=== PATIENT | female | born 2000 | race Caucasian/White ===

== ENCOUNTER 2020-08-13 08:33 | Outpatient (CLI) | payer OTHER, SELFPAY ==
--- NOTE | 2020-08-19 13:15 | WPDPFTINT ---
PFT Interpretation PFT Interpretation: Full pulmonary function testing 08/13/2020 1. Flows appear normal. Following inhaled bronchodilator, there is little objective change. 2. Volumes appear satisfactory. 3. Diffusing capacity appears normal. In summary, this data appears to measure within normal limits. Paulo Chen MD MSc FACP [facility]
== END 2020-08-13 08:34 | disposition home or self-care (01) ==
PROVIDERS: PCP Family Medicine; Visit Provider Nurse Practitioner Family
DX: R06.00 Dyspnea, unspecified (principal)
CPT/HCPCS: 94060; 94726; 94729

== ENCOUNTER 2022-09-07 13:13 | Outpatient (CLI) | payer OTHER, BC, SELFPAY ==
--- NOTE | ~2022-09-07 | US_ITS ---
Thyroid ultrasound. Clinical History: Autoimmune thyroiditis Findings: Real-time sonography of the thyroid gland was performed. The right lobe measures 5.8 x 1.8 x 1.5 cm. The left lobe measures 5.1 x 1.8 x 1.8 cm. The isthmus is 7 mm in AP diameter. Thyroid parenchyma is diffusely heterogeneous, without definite, discrete nodule. Impression: Heterogeneous parenchyma without discrete nodule. Consider correlation with thyroid function tests an d/or nuclear medicine thyroid uptake scan, as indicated. Reviewed, dictated and finalized at location M. H TECHNICIAN Impression: Heterogeneous parenchyma without discrete nodule. Consider correlation with thy roid function tests and/or nuclear medicine thyroid uptake scan, as indicated.
== END 2022-09-07 13:14 ==
PROVIDERS: PCP Family Medicine; Visit Provider Nurse Practitioner Family
DX: E06.3 Autoimmune thyroiditis (principal)
CPT/HCPCS: 76536

== ENCOUNTER 2022-10-08 12:56 | Outpatient (CLI) | payer OTHER, BC, SELFPAY ==
--- NOTE | ~2022-10-08 | NM_ITS ---
EXAMINATION: NM thyroid scan w uptake DATE: 10/09/2022 14:45 INDICATION: Autoimmune thyroiditis. COMPARISON: Thyroid ultrasound 09/07/2022 TECHNIQUE: 0.363 mCi I-123 was administered orally. Scintigraphic images of the thyroid gland were o btained at 24 hours. Thyroid uptake was calculated by the technologist. FINDINGS: The thyroid uptake is 33% (normal 10-30%), with the right lobe measuring 18% uptake and the left 15%. There is no focal area of decreased or increased activity to suggest hypofunctioning or hyperfunctio cristhian nodule. IMPRESSION: 1. Borderline increased 24-hour iodine uptake, likely not clinically significant given the normal th yroid function tests. Reviewed, dictated and finalized at location A. ETICS TEACHER IMPRESSION: 1. Borderline increased 24-hour iodine uptake, likely not clinically significa nt given the normal thyroid function tests.
== END 2022-10-08 12:57 | disposition home or self-care (01) ==
PROVIDERS: PCP Family Medicine; Visit Provider Nurse Practitioner Family
DX: E06.3 Autoimmune thyroiditis (principal)
CPT/HCPCS: 78014; A9516

== ENCOUNTER 2024-04-12 15:43 | Outpatient (CLI) | payer OTHER, SELFPAY ==
--- NOTE | ~2024-04-12 | US_ITS ---
EXAMINATION: US OB <= 14 weeks fetus DATE: 04/12/2024 16:04 INDICATION: Uncertain dating of TECHNIQUE: Real-time pelvic ultrasound utilizing transabdominal probe was performed. The brie mohan radiologist was not present for the study. COMPARISON: None. FINDINGS: The uterus measures 10.0 x 5.1 x 5.7 cm. There is an intrauterine gestational sac. A yolk sac and fe nadira pole are identified. The crown rump length measures 1.2 cm, which correlates with an estimated ge stational age of 7 weeks and 3 days. heart motion is identified measuring 144 beats per minute (bpm) by M-mode Doppler. The right ovary measures 2.5 x 1.7 x 2.5 cm. The left ovary measures 3.7 x 1.5 x 3.0 cm. Vascular ayaka w identified in both ovaries on color Doppler. There is no free fluid in the pelvis. IMPRESSION: 1. Single living fetus with heart rate of 144 bpm. 2. Gestational age by ultrasound of 7 weeks 3 day(s) +/- 5 day(s) with ultrasound estimated date of delivery (MARIUM) of 11/26/2024. Reviewed, dictated and finalized at location A. IMPRESSION: 1. Single living fetus with heart rate of 144 bpm. 2. Gestational age by ultrasound of 7 weeks 3 day(s) +/- 5 day(s) with ultraso und estimated date of delivery (MARIUM) of 11/26/2024.
== END 2024-04-12 15:44 ==
PROVIDERS: PCP Obstetrics & Gynecology Gynecology; Visit Provider Obstetrics & Gynecology Gynecology
DX: Z36.87 Encounter for antenatal screening for uncertain dates (principal); Z3A.01 Less than 8 weeks gestation of pregnancy
CPT/HCPCS: 76801

== ENCOUNTER 2024-04-20 10:21 | Outpatient (CLI) | payer OTHER, SELFPAY ==
--- NOTE | ~2024-04-20 | US_ITS ---
Pelvic ultrasound. Clinical History: First trimester , vaginal spotting Technique: Realtime transabdominal and transvaginal scanning of the pelvis was performed. Color flow Doppler and Doppler spectral analysis were performed. Findings: The uterus is anteverted, and contains an intrauterine gestation. [place]-rump length of 2.1 cm corresponds to an estimated gestational age of 8 weeks 5 days. heart rate is 158 bpm.. Neither ovary seen. No adnexal mass seen. There is no evidence of free fluid in the cul de sac. Impression: Live intrauterine gestation, with estimated gestational age of 8 weeks 5 days. heart rate is 15 8 bpm. Reviewed, dictated and finalized at location . Impression: Live intrauterine gestation, with estimated gestational age of 8 weeks 5 days. heart rate is 158 bpm.
== END 2024-04-20 10:22 ==
PROVIDERS: PCP Obstetrics & Gynecology Gynecology; Visit Provider Obstetrics & Gynecology Gynecology
DX: O26.851 Spotting complicating pregnancy, first trimester (principal)
CPT/HCPCS: 76801

== ENCOUNTER 2024-07-03 13:15 | Outpatient (CLI) | payer OTHER, SELFPAY ==
--- NOTE | ~2024-07-03 | US_ITS ---
EXAMINATION: US OB /maternal detail DATE: 07/03/2024 13:56 INDICATION: anatomic survey. TECHNIQUE: Real-time ultrasound of the pelvis was performed. COMPARISON: Ultrasound 04/20/2024, 04/12/2024 FINDINGS: There is a single living fetus in vertex presentation. The placenta is anterior, 7.0 cm from the cer vix. heart rate is 157 beats per minute (bpm). The amniotic fluid volume is subjectively normal . The cervical length is 3.2 cm on transabdominal images, which is normal. The following biometric data were obtained: Biparietal diameter (BPD): 4.6 cm; head circumference (HC): 17.2 cm; abdominal circumference (AC): 14 .0 cm; femur length (FL): 2.9 cm. These measurements are concordant. Estimated weight is 278 g +/- 42 g, which correlates with the 19th percentile when 11/22/24 is us ed as estimated date of delivery. As single measurements, these parameters are each equal to the following estimated gestational ages: BPD: 19 weeks 5 days. HC: 19 weeks 5 days. AC: 19 weeks 3 days. FL: 18 weeks 5 days. estimated gestational age based solely on measurements from this exam is 19 weeks 3 days +/- 1 weeks 3 days. The cerebral ventricles, cerebellum, cisterna magna, nuchal fold, lip, and spine are normal. The hear t is normal. The diaphragm, stomach, kidneys, and bladder are normal. There are two umbilical arterie s to yield a 3-vessel cord. The cord insertion is normal. IMPRESSION: 1. Single living fetus in vertex presentation. 2. Estimated weight is 278 g +/- 42 g, which correlates with the 19th percentile when 11/22/24 i s used as estimated date of delivery. Note that estimated date of delivery based on the ultrasound fr om 04/12/2024 would be 11/26/2024. 3. Normal anatomic survey. Reviewed, dictated and finalized at location A. UCTION CONTROL COORDINATING CLERK IMPRESSION: 1. Single living fetus in vertex presentation. 2. Estimated weight is 278 g +/- 42 g, which correlates with the pe rcentile when 11/22/24 is used as estimated date of delivery. Note that estimated date of delivery based on the ultrasound from 04/12/2024 would be 11/26/2024. 3. Normal anatomic survey.
== END 2024-07-03 13:16 | disposition home or self-care (01) ==
LOC: MICIMG 13:17
PROVIDERS: PCP Obstetrics & Gynecology Gynecology; Visit Provider Obstetrics & Gynecology Gynecology
DX: Z36.9 Encounter for antenatal screening, unspecified (principal)
CPT/HCPCS: 76805

== ENCOUNTER 2024-09-19 21:33 | Outpatient (CLI) | payer OTHER, SELFPAY ==
[2024-09-19] VITALS (12 sets, daily range): BP systolic 108–114; BP diastolic 60–70; PULSE 73–83; O2SAT 100; BMI 31.0
--- OUTSIDE RECORDS SUMMARY | 2024-09-19 21:38 | XMS_ITS | Clinical Summary ---
Author Organization [address] Address [address] [place] [phone] Care Team Providers Care Radiographer Mammographer Name Role Phone Carson Fernandes MD Primary Care Provider Allergies No known active allergies Medications norgestimate-eth inyl estradioL (ORTHO-CYCLEN) 0.25-35 mg-mcg per tablet Take 1 tablet by mouth daily Active Active Problems No known active problems Social History Tobacco Use Types Packs/Day Years Used Date Smoking Tobacco: Never Assessed Comments Unknown Sex and Gender Information Value Date Recorded Sex Assigned at Not on file Legal Sex Female 3:57 PM WEB SOLUTIONS ARCHITECT Gender Identity Not on file Sexual Orientation Not on file Obstetrics History Last Filed Vital Signs Vital Sign Reading Time Taken Comments Blood Pressure 114/68 07/01/2023 2:59 PM WEB SOLUTIONS ARCHITECT Pulse 60 07/01/2023 2:59 PM WEB SOLUTIONS ARCHITECT Temperature 37.1 ??C (98.7 ??F) 07/01/2023 2:59 PM CS T Respiratory Rate 16 07/01/2023 2:59 PM WEB SOLUTIONS ARCHITECT Oxygen Saturation 99% 07/01/2023 2:59 PM WEB SOLUTIONS ARCHITECT Inhaled Oxygen Concentration - - Weight 59 kg (130 lb) 07/01/2023 2:59 PM WEB SOLUTIONS ARCHITECT Height 157.5 cm (5' 2 ) 07/01/2023 2:59 PM WEB SOLUTIONS ARCHITECT Body Mass Index 23.78 07/01/2023 2:59 PM WEB SOLUTIONS ARCHITECT Plan of Treatment Health Maintenance Due Date Last Done Comments Cervical Cancer Screening 1998 Depression Screening 1998 Hepatitis C Screening 1998 DTaP/Tdap/Td Vaccine (1 - Tdap) 2009 Varicella Vaccines (1 of 2 - 13+ 2-dose series) 2011 HPV Vaccines (1 - 3-dose series) 2013 Hepatitis B Screening 2016 Regular Well Visit/Exam 18-64 2016 Influenza Vaccine (#1) 2024 Pneumococcal vaccine <65 Aged Out No longer eligible based on patient's age to [place] [address] [place] [address] [facility] CHOICE PLUS [facility] HMO/PPO Address: [facility] [id number] [place] [address] Care Teams Radiographer Mammographer Relationship Specialty Start Date End Date Carson Fernandes MD PCP - General Family Medicine 07/01/23
--- OUTSIDE RECORDS SUMMARY | 2024-09-19 21:38 | XMS_ITS | Referral Summary ---
Author Organization [address] Address [address] [place] [phone] Care Team Providers Care Nurse Informatics Educator Name Role Phone Carson Fernandes MD Primary [...] on file Legal Sex Female 3:57 PM LOOM STOP CHECKER Gender Identity Not on file Sexual Orientation Not on file Last Filed Vital Signs Vital Sign Reading Time Taken Comments Blood Pressure 114/68 07/01/2023 2:59 PM LOOM STOP CHECKER Pulse 60 07/01/2023 2:59 PM LOOM STOP CHECKER Temperature 37.1 ??C (98.7 ??F) 07/01/2023 2:59 PM CS T Respiratory Rate 16 07/01/2023 2:59 PM LOOM STOP CHECKER Oxygen Saturation 99% 07/01/2023 2:59 PM LOOM STOP CHECKER Inhaled Oxygen Concentration - - Weight 59 kg (130 lb) 07/01/2023 2:59 PM LOOM STOP CHECKER Height 157.5 cm (5' 2 ) 07/01/2023 2:59 PM LOOM STOP CHECKER Body Mass Index 23.78 07/01/2023 2:59 PM LOOM STOP CHECKER Plan of Treatment Not on file Insurance [employer] [id number] [facility] CHOICE PLUS Care Teams Nurse Informatics Educator Relationship Specialty Start Date End Date Carson Fernandes MD PCP - General Family Medicine 07/01/23
[2024-09-19 22:05] LABS: Basophils Percent Auto 0.3 % (0.2-1.2); Eosinophils Absolute Auto 0.1 K/mm3 (0-0.3); Eosinophils Percent Auto 0.8 % (0-4.4); Hematocrit 33.6 % (37.0-47.0); Hemoglobin 11.4 g/dL (12.0-15.0); Immature Granulocyte Absolute 0.03 K/mm3 (0.00-0.031); Immature Granulocyte Percent A 0.3 % (0-0.5); Lymphocytes Absolute Auto 1.99 K/mm3 (0.9-3.2); Lymphocytes Percent Auto 20.5 % (18.3-44.2); Mean Corpuscular HGB Conc 33.9 g/dl (32-36); Mean Corpuscular Hemoglobin 28.9 pg (26-34); Mean Corpuscular Volume 85.1 fl (80-100); Mean Platelet Volume 10.3 fl (7.4-10.4); Monocytes Absolute Auto 0.7 K/mm3 (0.1-0.6); Monocytes Percent Auto 6.7 % (2.6-8.5); Neutrophils Absolute Auto 6.9 K/mm3 (1.3-6.7); Neutrophils Percent Auto 71.4 % (45.5-73.1); Platelet Count Result 178 k/mm3 (150-375); Red Blood Count 3.95 M/mm3 (4.2-5.4); Red Cell Distribution Width 13.2 % (11.5-14.5); White Blood Count 9.7 K/mm3 (4.5-10.0)
[2024-09-19 22:10] LABS: Creatinine Urine 15.8 mg/dL; Total Protein Urine Random 16 mg/dL; Ur Ttl Prot Creatinine Ratio 1.01 mg/mg (0-0.20)
[2024-09-19 22:15] LABS: Alanine Aminotransferase 22 U/L (6-35); Albumin Level 3.8 g/dL (3.5-5.1); Alkaline Phosphatase 76 U/L (38-126); Anion Gap 8 mmol/L (4-12); Aspartate Amino Transferase 17 U/L (14-36); Bilirubin,Total 0.4 mg/dL (0.2-1.3); Blood Urea Nitrogen 7 mg/dL (7-17); Calcium 9.3 mg/dL (8.4-10.2); Carbon Dioxide 26 mmol/L (22-30); Chloride 101 mmol/L (98-107); Estimated Glomerular Filt Rate > 60; Glucose 96 mg/dL (65-110); Potassium 3.8 mmol/L (3.4-5.0); Sodium 135 mmol/L (137-145)
[2024-09-19 22:17] LABS: Add Urine Microscopic? YES; Appearance Urine Clear (Clear); Bacteria Urine None Seen /hpf; Bilirubin Urine Negative (Negative); Blood Urine Negative (Negative); Color Urine Yellow (Yellow); Glucose Urine UA Negative (Negative); Ketones Urine Negative (Negative); Leukocyte Esterase Ur 1+ LEU/UL (Negative); Need Manual Microscopic Reviewed; Nitrate Urine Negative (Negative); Non Pathogenic Casts 0-2; Protein Urine Negative (Negative); RBC Urine 0-2 /hpf (0-2); Specific Grav Ur 1.004 (1.001-1.035); Squamous Epithelial Cell Urine Occasional /hpf (Few); Urobilinogen Urine 0.2 mg/dL (<2.0); WBC Urine 0-5 /hpf (0-3); pH Urine 7.5 (5.0-9.0)
== END 2024-09-19 22:53 | disposition home or self-care (01) ==
LOC: ANHOBOP 21:36 → ANHOBPP 21:39
PROVIDERS: PCP Family Medicine; Visit Provider Obstetrics & Gynecology Gynecology
DX: O13.9 Gestational [pregnancy-induced] hypertension without significant proteinuria, unspecified trimester (principal); Z3A.00 Weeks of gestation of pregnancy not specified
CPT/HCPCS: 36415; 59025; 80053; 81001; 82570; 84156; 84550; 85025; 87086; 99199

== ENCOUNTER 2024-09-21 06:54 | Outpatient (NON) | payer BC, SELFPAY ==
--- OUTSIDE RECORDS SUMMARY | 2024-09-21 07:26 | XMS_ITS | Referral Summary ---
Author Organization [address] Address [address] [place] [phone] Care Team Providers Care Body Finisher Name Role Phone Carson Fernandes MD Primary Care Provider [phone] Allergies No known active allergies Medications norgestimate-eth inyl estradioL (ORTHO-CYCLEN) 0.25-35 mg-mcg per tablet Take 1 tablet by mouth daily Active Active Problems No known active problems Social History Tobacco Use Types Packs/Day Years Used Date Smoking Tobacco: Never Assessed Comments Unknown Sex and Gender Information Value Date Recorded Sex Assigned at Not on file Legal Sex Female 3:57 PM BURLING AND JOINING SUPERVISOR Gender Identity Not on file Sexual Orientation Not on file Last Filed Vital Signs Vital Sign Reading Time Taken Comments Blood Pressure 114/68 07/01/2023 2:59 PM BURLING AND JOINING SUPERVISOR Pulse 60 07/01/2023 2:59 PM BURLING AND JOINING SUPERVISOR Temperature 37.1 ??C (98.7 ??F) 07/01/2023 2:59 PM CS T Respiratory Rate 16 07/01/2023 2:59 PM BURLING AND JOINING SUPERVISOR Oxygen Saturation 99% 07/01/2023 2:59 PM BURLING AND JOINING SUPERVISOR Inhaled Oxygen Concentration - - Weight 59 kg (130 lb) 07/01/2023 2:59 PM BURLING AND JOINING SUPERVISOR Height 157.5 cm (5' 2 ) 07/01/2023 2:59 PM BURLING AND JOINING SUPERVISOR Body Mass Index 23.78 07/01/2023 2:59 PM BURLING AND JOINING SUPERVISOR Plan of Treatment Not on file Insurance [employer] [place] [id number] [facility] CHOICE PLUS Care Teams Body Finisher Relationship Specialty Start Date End Date Carson Fernandes MD PCP - General Family Medicine 07/01/23
--- OUTSIDE RECORDS SUMMARY | 2024-09-21 07:26 | XMS_ITS | Clinical Summary ---
Author Organization [address] Address [address] [place] [phone] Care Team Providers Care Hair Tinter Name Role Phone Carson Fernandes MD Primary [...] on file Legal Sex Female 3:57 PM ELECTRONICS TECHNOLOGY INSTRUCTOR Gender Identity Not on file Sexual Orientation Not on file Obstetrics History Last Filed Vital Signs Vital Sign Reading Time Taken Comments Blood Pressure 114/68 07/01/2023 2:59 PM ELECTRONICS TECHNOLOGY INSTRUCTOR Pulse 60 07/01/2023 2:59 PM ELECTRONICS TECHNOLOGY INSTRUCTOR Temperature 37.1 ??C (98.7 ??F) 07/01/2023 2:59 PM CS T Respiratory Rate 16 07/01/2023 2:59 PM ELECTRONICS TECHNOLOGY INSTRUCTOR Oxygen Saturation 99% 07/01/2023 2:59 PM ELECTRONICS TECHNOLOGY INSTRUCTOR Inhaled Oxygen Concentration - - Weight 59 kg (130 lb) 07/01/2023 2:59 PM ELECTRONICS TECHNOLOGY INSTRUCTOR Height 157.5 cm (5' 2 ) 07/01/2023 2:59 PM ELECTRONICS TECHNOLOGY INSTRUCTOR Body Mass Index 23.78 07/01/2023 2:59 PM ELECTRONICS TECHNOLOGY INSTRUCTOR Plan of Treatment Health Maintenance Due Date [...] to complete [place] [address] [facility] CHOICE PLUS Care Teams Hair Tinter Relationship Specialty Start Date End Date Carson Fernandes MD PCP - General Family Medicine 07/01/23
[2024-09-21 07:31] VITALS: BMI 30.9
[2024-09-21 09:33] LABS: Collection Time Urine 24 HOURS
[2024-09-21 09:49] LABS: Creatinine Urine 62.3 mg/dL; Patient Weight 169 Lbs; Serum Creat 0.46; Total Protein Urine Random 13 mg/dL
[2024-09-21 10:36] LABS: Creatinine Clearance Urine 229.4 ml/min (75-125); Total Volume 24 Hour Urine 2500 ml
[2024-09-21 10:37] LABS: Total Protein Urine 24 Hr 325 mg/24hr (28-141); Total Volume 24 Hour Urine 2500 ml
== END 2024-09-21 06:55 | disposition home or self-care (01) ==
LOC: ANHOBOP 07:23
PROVIDERS: PCP Family Medicine; Visit Provider Obstetrics & Gynecology Gynecology
DX: O13.9 Gestational [pregnancy-induced] hypertension without significant proteinuria, unspecified trimester (principal); Z3A.00 Weeks of gestation of pregnancy not specified
CPT/HCPCS: 81050; 82575; 84156

== ENCOUNTER 2024-09-27 11:18 | Outpatient (CLI) | payer OTHER, SELFPAY ==
--- NOTE | ~2024-09-27 | US_ITS ---
Limited Abdominal Sonogram: Real-time sonographic imaging of the right upper quadrant was performed. Clinical History: Right upper quadrant pain Findings: The liver appears normal with no evidence of mass lesion or bile duct dilatation. Main por nadira vein demonstrates normal direction of flow. The gallbladder is well distended, and demonstrates 2 mm gallbladder wall polyp. The common bile duct measures 2 mm. The visualized pancreas, aorta, and IVC are unremarkable. Impression: 2 mm gallbladder wall polyp. Reviewed, dictated and finalized at location . 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
== END 2024-09-27 11:19 | disposition home or self-care (01) ==
PROVIDERS: PCP Family Medicine; Visit Provider Obstetrics & Gynecology Gynecology
DX: R10.11 Right upper quadrant pain (principal); K82.4 Cholesterolosis of gallbladder
CPT/HCPCS: 76705

== ENCOUNTER 2024-10-05 14:50 | Outpatient (RCR) | payer OTHER, SELFPAY ==
[2024-09-28 17:54] VITALS: BP 108/58; PULSE 80
--- NOTE | ~2024-10-05 | US_ITS ---
EXAMINATION: US OB follow up w BPP DATE: 09/28/2024 15:45 INDICATION: Preeclampsia. cardiac decelerations. Assess biophysical profile and amniotic fluid index. TECHNIQUE: Real-time pelvic ultrasound was performed. The interpreting radiologist was not present fo r the study. COMPARISON: None. FINDINGS: There is a single living fetus in vertex presentation. The placenta is anterior and not low-lying. F etal heart rate is 135 beats per minute (bpm). Normal amniotic fluid index of 15.8 cm. The following biometric data were obtained: BPD: 8.7 cm -> 35 weeks 0 days Head circumference: 30.8 cm -> 34 weeks 2 days Abdominal circumference: 28.6 cm -> 32 weeks 4 days Femur length: 6.2 cm -> 32 weeks 0 days These measurements are concordant. Head circumference to abdominal circumference ratio: 1.08 (normal range 0.95-1.11). Estimated weight: 2048 g (+/-) 307 g, 4 lbs 8 oz (+/-) 11 oz Biophysical profile performed by the technologist: breathing (30 sec sustained breathing in 30 minutes): 2 out of 2 movement (3 gross body movements in 30 minutes: 2 out of 2 tone (one episode of gvxwjih-ktktsrvot-wrynytl limb movement): 2 out of 2 Amniotic fluid pocket (2 cm): 2 out of 2 Total score: 8 out of 8 IMPRESSION: 1. Single living fetus in vertex presentation with heart rate of 135 bpm. 2. Biophysical profile 8 out of 8. 3. Normal amniotic fluid index of 15.8 cm. 4. Estimated weight is 60th percentile by Hadlock criteria when 11/22/2024 is used as the estimat ed date of delivery (MARIUM). Please correlate with clinical information or earlier ultrasounds for most accurate MARIUM. Reviewed, dictated and finalized at location A. TRAINING IMPRESSION: 1. Single living fetus in vertex presentation with heart rate of 135 bpm. 2. Biophysical profile 8 out of 8. 3. Normal amniotic fluid index of 15.8 cm. 4. Estimated weight is 60th percentile by Hadlock criteria when 11/22/2024 is used as the estimated date of delivery (MARIUM). Please correlate with clinical information or earlier ultrasounds for most accurate MARIUM.
[2024-10-05 15:31] VITALS: BP 113/68; PULSE 83
== END 2024-12-13 17:06 | disposition home or self-care (01) ==
LOC: ANHOBOP 14:50
PROVIDERS: PCP Family Medicine; Visit Provider Obstetrics & Gynecology Gynecology
DX: O14.90 Unspecified pre-eclampsia, unspecified trimester (principal); O36.8310 Maternal care for abnormalities of the fetal heart rate or rhythm, first trimester, not applicable or unspecified
CPT/HCPCS: 59025; 76816; 76819

== ENCOUNTER 2024-10-29 16:05 | Inpatient (IN) | payer OTHER, SELFPAY ==
[2024-10-29] VITALS (12 sets, daily range): BP systolic 92–126; BP diastolic 47–78; PULSE 65–105; TEMP 36.6–37.5; BMI 33.5
--- OUTSIDE RECORDS SUMMARY | 2024-10-29 16:08 | XMS_ITS | Referral Summary ---
Author Organization [address] Address [address] [place] [phone] Care Team Providers Care Rotor Plate Washer Name Role Phone Carson Fernandes MD Primary [...] on file Legal Sex Female 3:57 PM OFFICE MACHINE SERVICE SUPERVISOR Gender Identity Not on file Sexual Orientation Not on file Last Filed Vital Signs Vital Sign Reading Time Taken Comments Blood Pressure 114/68 07/01/2023 2:59 PM OFFICE MACHINE SERVICE SUPERVISOR Pulse 60 07/01/2023 2:59 PM OFFICE MACHINE SERVICE SUPERVISOR Temperature 37.1 C (98.7 F) 07/01/2023 2:59 PM OFFICE MACHINE SERVICE SUPERVISOR Respiratory Rate 16 07/01/2023 2:59 PM OFFICE MACHINE SERVICE SUPERVISOR Oxygen Saturation 99% 07/01/2023 2:59 PM OFFICE MACHINE SERVICE SUPERVISOR Inhaled Oxygen Concentration - - Weight 59 kg (130 lb) 07/01/2023 2:59 PM OFFICE MACHINE SERVICE SUPERVISOR Height 157.5 cm (5' 2 ) 07/01/2023 2:59 PM OFFICE MACHINE SERVICE SUPERVISOR Body Mass Index 23.78 07/01/2023 2:59 PM OFFICE MACHINE SERVICE SUPERVISOR Plan of Treatment Not on file Insurance [employer] [id number] [facility] CHOICE PLUS [facility] HMO/PPO Address: [place] [address] Care Teams Rotor Plate Washer Relationship Specialty Start Date End Date Carson Fernandes MD PCP - General Family Medicine 07/01/23
--- OUTSIDE RECORDS SUMMARY | 2024-10-29 16:08 | XMS_ITS | Clinical Summary ---
Author Organization [address] Address [address] [place] [phone] Care Team Providers Care Wire Brusher Name Role Phone Carson Fernandes MD Primary Care Provider [phone] Allergies No known active allergies Medications norgestimate-eth inyl estradioL (ORTHO-CYCLEN) 0.25-35 mg-mcg per tablet Take 1 tablet by mouth daily Active Active Problems No known active problems Social History Tobacco Use Types Packs/Day Years Used Date Smoking Tobacco: Never Assessed Comments Unknown Sex and Gender Information Value Date Recorded Sex Assigned at Not on file Legal Sex Female 3:57 PM DRY WALL INSTALLATIONS MECHANIC Gender Identity Not on file Sexual Orientation Not on file Obstetrics History Last Filed Vital Signs Vital Sign Reading Time Taken Comments Blood Pressure 114/68 07/01/2023 2:59 PM DRY WALL INSTALLATIONS MECHANIC Pulse 60 07/01/2023 2:59 PM DRY WALL INSTALLATIONS MECHANIC Temperature 37.1 C (98.7 F) 07/01/2023 2:59 PM DRY WALL INSTALLATIONS MECHANIC Respiratory Rate 16 07/01/2023 2:59 PM DRY WALL INSTALLATIONS MECHANIC Oxygen Saturation 99% 07/01/2023 2:59 PM DRY WALL INSTALLATIONS MECHANIC Inhaled Oxygen Concentration - - Weight 59 kg (130 lb) 07/01/2023 2:59 PM DRY WALL INSTALLATIONS MECHANIC Height 157.5 cm (5' 2 ) 07/01/2023 2:59 PM DRY WALL INSTALLATIONS MECHANIC Body Mass Index 23.78 07/01/2023 2:59 PM DRY WALL INSTALLATIONS MECHANIC Plan of Treatment Health Maintenance Due Date [...] to complete [place] [phone] [facility] CHOICE PLUS [facility] HMO/PPO Address: [facility] [address] [place] [address] Care Teams Wire Brusher Relationship Specialty Start Date End Date Carson Fernandes MD PCP - General Family Medicine 07/01/23
[2024-10-29 16:42] LABS: Basophils Percent Auto 0.2 % (0.2-1.2); Eosinophils Percent Auto 0.3 % (0-4.4); Hematocrit 33.1 % (37.0-47.0); Hemoglobin 11.4 g/dL (12.0-15.0); Immature Granulocyte Absolute 0.05 K/mm3 (0.00-0.031); Immature Granulocyte Percent A 0.5 % (0-0.5); Lymphocytes Absolute Auto 1.38 K/mm3 (0.9-3.2); Lymphocytes Percent Auto 13.9 % (18.3-44.2); Mean Corpuscular HGB Conc 34.4 g/dl (32-36); Mean Corpuscular Hemoglobin 28.8 pg (26-34); Mean Corpuscular Volume 83.6 fl (80-100); Mean Platelet Volume 10.9 fl (7.4-10.4); Monocytes Absolute Auto 0.6 K/mm3 (0.1-0.6); Monocytes Percent Auto 5.9 % (2.6-8.5); Neutrophils Absolute Auto 7.9 K/mm3 (1.3-6.7); Neutrophils Percent Auto 79.2 % (45.5-73.1); Platelet Count Result 183 k/mm3 (150-375); Red Blood Count 3.96 M/mm3 (4.2-5.4); Red Cell Distribution Width 13.4 % (11.5-14.5); White Blood Count 9.9 K/mm3 (4.5-10.0)
[2024-10-29 16:55] LABS: Alanine Aminotransferase 24 U/L (6-35); Albumin Level 3.8 g/dL (3.5-5.1); Alkaline Phosphatase 107 U/L (38-126); Anion Gap 11 mmol/L (4-12); Aspartate Amino Transferase 21 U/L (14-36); Bilirubin,Total 0.4 mg/dL (0.2-1.3); Blood Urea Nitrogen 8 mg/dL (7-17); Carbon Dioxide 19 mmol/L (22-30); Chloride 106 mmol/L (98-107); Estimated Glomerular Filt Rate > 60; Glucose 101 mg/dL (65-110); Potassium 3.7 mmol/L (3.4-5.0); Sodium 136 mmol/L (137-145); Uric Acid 3.7 mg/dL (2.5-7.5)
--- NOTE | 2024-10-29 16:58 | LDADM ---
This patient, Rossi Maldonado, was admitted to Labor/Delivery/Recovery 108 on 10/29/24 at 16:05. Plans for labor, pain management and were discussed with patient. Patient/family oriented to hospital policies and general routines including ID bracelet, bed and alarms, visiting hours, pain management, procedures, bathroom and other care routines, personal items, smoking policy, room service/diet and guest tray routines, security routines, and visiting hours. Patient/Family are encouraged to report perceived risks to care and to ask questions if they do not understand what they are told or what they should do. See OBIX for further documentation.
[2024-10-29 17:29] LABS: Syphilis IgG/IgM Antibody Negative (Negative)
[2024-10-29 17:35] LABS: HIV 1/2 Ab P24 Ag Result Negative (Negative)
--- NOTE | 2024-10-29 18:24 | P.PNAN_ITS ---
Anes - Eval Pre Procedure Procedure: Labor epidural Date/Time: 10/29/24 18:24 Surgeon: Jayme Preop Diagnosis: Abdominal pain with contractions Pre Op Diagnosis: IOL Patient Data Age: 24 Gender: F Height: 1.57 m Weight: 83 kg Last Vital Signs Temp 99.5 F 10/29/24 16:52 Pulse 84 10/29/24 18:00 BP 121/75 10/29/24 18:00 Allergies Allergy/AdvReac Type Severity Reaction Status Date / Time No Known Allergies Allergy Verified 08/17/24 10:07 Home Medications ?Medication ?Instructions ?Recorded ?Confirmed ?Type levothyroxine 25 mcg tablet See Rx Instructions .Route 10/11/24 10/29/24 Rx .COMPLEX #15 tabs aspirin 81 mg capsule 81 mg PO DAILY 10/29/24 10/29/24 History cholecalciferol (vitamin D3) 125 125 mcg PO DAILY 10/29/24 10/29/24 History mcg (5,000 unit) tablet (Vitamin D3) ferrous sulfate 325 mg (65 mg 325 mg PO BID 10/29/24 10/29/24 History iron) tablet (Feosol) vit no.95-ferrous 1 tablet PO DAILY 10/29/24 10/29/24 History fumarate 28 mg-folic acid 800 mcg tablet () Laboratory Tests 10/29/24 10/29/24 16:32 16:32 WBC 9.9 K/mm3 (4.5-10.0) RBC 3.96 L M/mm3 (4.2-5.4) Hgb 11.4 L g/dL (12.0-15.0) Hct 33.1 L % (37.0-47.0) MCV 83.6 fl (80-100) MCH 28.8 pg (26-34) MCHC 34.4 g/dl (32-36) RDW 13.4 % (11.5-14.5) Plt Count 183 k/mm3 (150-375) MPV 10.9 H fl (7.4-10.4) Immature Gran % (Auto) 0.5 % (0-0.5) Neut % (Auto) 79.2 H % (45.5-73.1) Lymph % (Auto) 13.9 L % (18.3-44.2) [place] % (Auto) 5.9 % (2.6-8.5) Eos % (Auto) 0.3 % (0-4.4) Baso % (Auto) 0.2 % (0.2-1.2) Lymph # (Auto) 1.38 K/mm3 (0.9-3.2) [place] # (Auto) 0.6 K/mm3 (0.1-0.6) Eos # (Auto) 0.0 K/mm3 (0-0.3) Baso # (Auto) 0.0 K/mm3 (0.0-0.1) Abs Immat Gran (auto) 0.05 H K/mm3 (0.00-0.031) Absolute Neuts (auto) 7.9 H K/mm3 (1.3-6.7) Absolute Nucleated RBC 0.000 K/mm3 (0.0-0.012) Nucleated RBC % 0.0 % (0.0-0.2) Sodium 136 L mmol/L (137-145) Potassium 3.7 mmol/L (3.4-5.0) Chloride 106 mmol/L (98-107) Carbon Dioxide 19 L mmol/L (22-30) Anion Gap 11 mmol/L (4-12) BUN 8 mg/dL (7-17) Creatinine 0.50 L mg/dL (0.7-1.0) Estim Creat Clear Calc Not Reportable Estimated GFR > 60 (59 - ) Glucose 101 mg/dL (65-110) Uric Acid Cancelled 3.7 mg/dL (2.5-7.5) Calcium 9.0 mg/dL (8.4-10.2) Total Bilirubin 0.4 mg/dL (0.2-1.3) AST 21 U/L (14-36) ALT 24 U/L (6-35) Alkaline Phosphatase 107 U/L (38-126) Total Protein 7.0 g/dL (6.3-8.2) Albumin 3.8 g/dL (3.5-5.1) Syphilis IgG/IgM Ab Negative (Negative) HIV 1&2 Ab/P24 Ag 4thGn Negative (Negative) Blood Type O Positive Antibody Screen Negative : gestational age HCG: positive Patient hx anesthesia problems: none Family hx anesthesia problems: none Results Review: All pre-operative results and documents have been reviewed as part of the pre-operative evaluation. PMFSH Past Medical History Medical History and not yet delivered Overweight (BMI 25.0-29.9) Lipid screening Encounter for wellness examination Eczema of eyelid BMI 25.0-25.9,adult Chronic dyspnea Roz's thyroiditis Family History Family History Grandparent Family history of malignant neoplasm of breast Family history of malignant neoplasm of thyroid Sibling Family history of type 1 diabetes mellitus Diabetes mellitus Father Family history of elevated blood lipids Mother Asthma Grandparent Family history of malignant neoplasm of breast in first degree relative Social History Social History Smoking status: Never smoker Second hand tobacco smoke exposure: No Alcohol intake: current Substance use: never Substance use type: does not use Do You Feel Safe in your Home?: Yes Lack of Transportation: No Lack of Food: Never True Current Housing: I Have Housing Concerned About Future Housing: No Difficulty Paying Gas/Electric Bills: No Difficulty Paying for Meds: No Currently Unemployed: No Education: Master's Degree or Higher Difficulty w/ Childcare or Family Care: No Living arrangements: with family Occupation/Education: occupation 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
[2024-10-30] VITALS (199 sets, daily range): BP systolic 85–139; BP diastolic 39–88; PULSE 25–239; TEMP 36.4–36.9; O2SAT 66–100
[2024-10-30] MEDS: OXYTOCIN 30 UNITS/NS 500 ML 30 UNITS/500 ML BAG 6 UNITS IV CONT (07:19)
[2024-10-30] MEDS: LACTATED RINGERS 1,000 ML 125 ML IV CONT ×3 (07:19→16:41)
--- NOTE | 2024-10-30 07:22 | WPDOBADMIT ---
Obstetrics - Admit Note Admission Note: record reviewed. Pertinent additions to the history and/or any subsequent changes in the physical findings that are not consistent with the expected course of the were found. Additions to the history and/or subsequent changes in the physical findings follow. Patient admitted for MIL last pm. RN discussed with on-call physician and would not place cervadil. 24 hour urine restarted. He was not told of prior history from Aug. Protein/Cr ratio 1.01 and 24 hour protein 325 mg. Patient has been on bedrest and calling with daily BP's and symptom checks. NST's have been followed 2x/week. BP's quickly normalized so waited until 36 6/7 wks for MIL. Cervix /-2 anterior. AROM with clear fluid. Ordered pitocin high dose. 24 hour urine cancelled. FHTs cat I this am. Two decels throughout night but otherwise good accelerations and variability.
[2024-10-30] MEDS: ONDANSETRON INJ 4 MG/2 ML VIAL IV PUSH (12:52)
--- NOTE | 2024-10-30 21:16 | PM.OBPRVD ---
OB - Vaginal Delivery Note Procedure Delivery date: 10/30/24 Events: Preeclampsia w/o severe features Induction method: AROM and Per Pitocin Protocol Delivery monitor: External FHT and External Uterine Route of delivery: Episiotomy description: None Laceration Description: Periurethral (right) and Perineal - 2nd Degree (midline vaginal then lateral to left labia majora) Delivery repair: vicryl (3-0) Specimen: Yes (placenta) Anesthesia type: Epidural Disposition: Floor Complications: No immediate complications Baby Date of : 10/30/24 Gestational Age by Date: 36 (36 01/27) Infant gender: Female Weight (pounds): 6 Weight (ounces): 10 presentation: vertex position: Right Occiput Anterior Placenta delivery description: Spontaneous Cord Vessel Description: 3 Vessels, Nuchal Cord and Delayed Cord Clamping score one minute: 8 score five minutes: 9
--- NOTE | 2024-10-30 21:18 | PM.OBDSVD ---
DS: Admitting Diagnosis Discharge Date 11/01/24 Admitting Diagnosis IUP 36 6/7 wks preeclampsia MIL DS: Discharge Diagnosis Discharge Diagnosis (1) (normal spontaneous vaginal delivery): Code(s): O80 - Encounter for full-term uncomplicated delivery Status: Acute (2) Preeclampsia: Code(s): O14.90 - Unspecified pre-eclampsia, unspecified trimester Status: Acute OB - DS: Summary OB Procedures : NST, PIH Mgmt and Ultrasound OB Procedures Intrapartum: Spontaneous Vag Delivery OB Procedures: : None Peripartum Data Delivery Method: Natural Vaginal Laceration Description: Periurethral (right) and Perineal - 2nd Degree (midline vaginal then lateral to left labia majora) Episiotomy description: None complications: none Status at Discharge Functional status at discharge: independent ambulation Overall status at discharge: patient is progressing back to baseline Time Spent with Patient Time attestation: Total time spent providing and/or coordinating discharge services: Discharge Plan Discharge Attending physician on discharge: Carolynn Delacruz Discharging Clinician: Carolynn Delacruz Anticipated Discharge Date/Time: 11/01/24 21:19 Patient Disposition: Home, Self-Care Activity: may shower and pelvic rest Diet: regular Patient Instructions: Antibiotic Form Patient Language: Romanian Stand Alone Forms: General Discharge Information Follow-up/Referrals: Carolynn Delacruz MD [Physician] - 1 Week (and 6 wk) Discharge Medications: New norethindrone (contraceptive) 0.35 mg tablet 0.35 mg PO DAILY Qty: 84 3RF Continued ferrous sulfate [Feosol] 325 mg (65 mg iron) tablet 325 mg PO BID PNV cmb#[id number]-ferrous fumarate-FA [] 28 mg iron- 800 mcg tablet 1 tablet PO DAILY cholecalciferol (vitamin D3) [Vitamin D3] 125 mcg (5,000 unit) tablet 125 mcg PO DAILY levothyroxine 25 mcg tablet See Rx Instructions .ROUTE .COMPLEX Qty: 15 5RF Dose Instruction: TAKE 1/2 TABLET BY MOUTH EVERY DAY Rx Instructions: TAKE 1/2 TABLET BY MOUTH EVERY DAY Discontinued aspirin 81 mg capsule 81 mg PO DAILY Date of admission: 10/29/24 16:05 Primary Care Provider: Carson Fernandes Admitting Provider: Carolynn Delacruz Attending physician on admission: Carolynn Delacruz Condition: Stable
[2024-10-30] MEDS: IBUPROFEN 600 MG TABLET PO (22:42)
[2024-10-30] MEDS: BENZOCAINE 20% AER SPR (*SP) 56 GM CAN 1 SPRAY TOPICAL (22:44)
[2024-10-30] MEDS: WITCH HAZEL 40 PADS 1 PAD TOPICAL (22:44)
[2024-10-31] VITALS (9 sets, daily range): BP systolic 104–131; BP diastolic 64–83; PULSE 72–91; RESP 14–18; TEMP 36.6–37.3; O2SAT 97–100
[2024-10-31] MEDS: ACETAMINOPHEN 325 MG TABLET 650 MG PO ×4 (01:54→21:45)
--- NOTE | 2024-10-31 02:34 | OBPPTRN ---
Patient transferred to post room #113 via wheelchair. Support person present. Oriented to unit, room, information board, rooming in, admission packet and security measures. Patient knows to call for blood sugars before feeding baby. Patient verbalizes understanding.
[2024-10-31 04:31] LABS: Hematocrit 28.7 % (37.0-47.0); Hemoglobin 9.6 g/dL (12.0-15.0)
[2024-10-31] MEDS: IBUPROFEN 600 MG TABLET PO ×3 (05:57→18:20)
--- NOTE | 2024-10-31 07:15 | PC.NURSE ---
0715: Patient initiating a feeding. Primary RN checked baby's blood sugar and it was WNL. Baby is very sleepy and gives minimal to no effort to latch. We worked with her in football hold and she would not give a wide gape or successfully latch to the breast. Encouraged mom to wait 30 minutes and try again, or if there are any feeding cues noted. Reported to primary RN. 0745: Patient called out to say that baby was giving feeding cues and she wanted assistance latching. Mom has baby in a cradle hold and baby did give more effort to latch. She would open wide and suck maybe once upon latch, then would let go of the breast or sit with it in her mouth. Mom states this is how the feedings have been overnight and that baby likes to suckle at her own pace . It appears that baby's suckles are ineffective for milk transfer. Her jaw quivers and may be weak due to her late status. What mom perceives as baby appears to be minimally effective. Encouraged mom to allow a little more time before trying again. Mom is going to eat breakfast and then will attempt to feed. Discussed with parents that baby is early and may be extra sleepy due to being 36 weeks. Mom has her pump and we reviewed that we may need to initiate pumping because baby isn't feeding effectively. Reported to primary RN. 9975: Primary RN went to patient room when they called out for feeding assistance. Baby was more eager and did latch off and on . Mom has baby in cradle hold and states that she seemed hungry while in the bassinet and had been off and on the breast for a few minutes. Baby had several latch attempts while I was present. There was no sustained latch or sucking. Baby appears sleepy and minimally interested in eating. Advised mom that she can try for a few more minutes but then she should conclude this feeding. Advised parents that baby needs another glucose check before the next feeding. Mother aware that we may still need to initiate pumping, depending on baby's effort and blood sugar at the next feeding time. Reported to primary RN.
[2024-10-31] MEDS: POLYSACCHARIDE IRON COMPLEX 150 MG CAPSULE PO ×2 (07:29→16:51)
[2024-10-31] MEDS: DOCUSATE SODIUM 100 MG CAPSULE PO ×2 (07:30→16:51)
[2024-10-31] MEDS: MULTIVIT/MIN/PREN/FOL AC/IRON TABLET 1 TAB PO (07:30)
--- NOTE | 2024-10-31 07:48 | P.PNOB_ITS ---
OB - PN: Subj Subjective Date/time seen: 10/31/24 07:48 Interval history: No PIH sx. Patient comments: no complaints and pain well controlled baby status: doing well OB - PN: Obj Data Labs 10/31/24 03:54 10/29/24 16:32 Labs: Laboratory Results - last 24 hr 10/31/24 03:54 Hgb 9.6 L Hct 28.7 L OB - PN A/P Assessment and Plan (1) (normal spontaneous vaginal delivery): Code(s): O80 - Encounter for full-term uncomplicated delivery Status: Acute (2) Preeclampsia: Code(s): O14.90 - Unspecified pre-eclampsia, unspecified trimester Status: Acute Assessment and Plan: No diuresis yet. Good BP's. No Sx. Plan day: 1 Plan: routine care Time Spent With Patient Time: Total time spent is greater than 50% in coordination of care (as documented) at patient's floor/unit and/or counseling patient: Exam 2 : Bimanual exam- vagina & uterus: other (Uterus firm, nt @U)
--- NOTE | 2024-10-31 08:08 | WPDANLDPN2 ---
Anes-Prog Note L&D Date/Time: 10/31/24 08:08 Comfortable throughout: labor and delivery Neuraxial method: epidural Epidural/Spinal procedure site: clean & non-tender Neuro status: Neuro function grossly intact. Cardiovascular status: normal Respiratory status: normal Airway patency: baseline Mental status: baseline Post-Op hydration status: normal Vital Signs: Last Vital Signs Temp 36.6 C 10/31/24 07:30 Pulse 82 10/31/24 07:21 Resp 16 10/31/24 07:30 BP 124/75 10/31/24 07:21 Pulse Ox 100 10/31/24 07:25 O2 Del Method Room Air 10/31/24 07:30 Pain score (VAS): 09/01 I/O: Intake & Output 10/30/24 10/31/24 10/31/24 23:59 07:59 15:59 Intake Total 491.7 Output Total 50 200 Balance 441.7 -200 Post-procedural complaints: none Patient feedback: Patient satisfied with anesthetic care.
--- NOTE | 2024-10-31 11:00 | PC.NURSE ---
1100: Blood sugar for baby was 63. Baby was more eager than any previous feeding attempts. Baby latched and sucked about 6 times and then held the nipple in her mouth. Mom works well with baby in cross cradle hold. She is learning to make a bite for baby and get a deeper latch. Baby was off and on the breast and latched several more times without much sucking effort. Mom is given the option to wait and see if baby feeds more effectively in the next hour or to initiate pumping now. She would like to start pumping and give baby whatever we get. Mom has her own Spectra breast pump. She measured herself for flange size and has a 17mm insert. Advised that this may cause rubbing and if it is not comfortable we should remove the insert and use the 24mm flange. Instructions given on cleaning, care, usage, that there should be no pain, pumping schedule for milk production, collection, and storage of human milk. Patient was assessed for correct placement and flange size (she used the 17mm with no discomfort).?Reviewed different pumping modes and how to use massage and expression for a total of 15 minutes. Mother voiced understanding of the education shared. Reported to the Primary RN. 1130: Mom finished pumping and we were able to draw up 2ml of colostrum in a syringe. Showed mom how the syringe is placed in the cheek and given in small increments. Reviewed with mom the possibility of needing to continue to pump and supplement if baby isn't feeding effectively. Mom prefers to avoid formula but will use it if medically necessary. Encouraged her that we can speak with the emergency room technician about need for supplementation before we start using anything besides breastmilk. Reported to primary RN.
--- NOTE | 2024-10-31 19:00 | OBPPTRN ---
Patient transferred to post room #284 via wheelchair. Support person present. Oriented to unit, room, information board, rooming in, admission packet and security measures. Patient verbalizes understanding.
[2024-11-01] MEDS: IBUPROFEN 600 MG TABLET PO ×2 (02:22→08:15)
[2024-11-01 04:01] VITALS: BP 105/68; PULSE 82; RESP 18; TEMP 36.6; O2SAT 99
--- NOTE | 2024-11-01 04:45 | PC.NURSE ---
Called to room by pt due to questions about feeding. Pt is concerned is not getting what she needs from due to infant still rooting not even an hour after previous feed. Discussed that pt can try to put infant to breast again and that she may be cluster feeding. Pt stated she has pumped breast milk stored in fridge and questions if she should go ahead and feed infant that. I encouraged mob to feed infant at breast and follow up with EBM and pt agreed. Discussed infants bilirubin results and the possibility of serum draw in the future and that infant has had numerous wet and dirty diapers so there is no concern there. Pt has at the breast now and infant sucked a few times and fell asleep. Pt denied having any pain with latching or open/cracked areas of the nipples. Pt stated she has lanolin cream if needed.
--- NOTE | 2024-11-01 07:39 | P.PNOB_ITS ---
OB - PN: Subj Subjective Date/time seen: 11/01/24 07:39 Interval history: No PIH sx. Patient comments: no complaints baby status: doing well feeding status: exclusively breast feeding OB - PN: Obj Data Labs 10/31/24 03:54 10/29/24 16:32 OB - PN A/P Assessment and Plan (1) Preeclampsia: Code(s): O14.90 - Unspecified pre-eclampsia, unspecified trimester Status: Acute Assessment and Plan: Diuresis over last 24 hours 2 Liters. BP remain good. No PIH sx. DC home. Follow up 1 week Plan day: 2 Plan: discharge home and other (plans micronor for bc) Time Spent With Patient Time: Total time spent is greater than 50% in coordination of care (as documented) at patient's floor/unit and/or counseling patient: Exam 2 : Bimanual exam- vagina & uterus: other (Uterus firm, nt @U)
[2024-11-01 07:50] VITALS: BP 117/78; PULSE 80; RESP 18; TEMP 37.5; O2SAT 99
[2024-11-01] MEDS: DOCUSATE SODIUM 100 MG CAPSULE PO (08:14)
[2024-11-01] MEDS: POLYSACCHARIDE IRON COMPLEX 150 MG CAPSULE PO (08:14)
[2024-11-01] MEDS: WITCH HAZEL 40 PADS 1 PAD TOPICAL (11:05)
[2024-11-01] MEDS: BENZOCAINE 20% AER SPR (*SP) 56 GM CAN 1 SPRAY TOPICAL (11:05)
[2024-11-01] MEDS: ACETAMINOPHEN 325 MG TABLET 650 MG PO (11:06)
--- NOTE | 2024-11-01 12:51 | PC.NURSE ---
1005 Mother called out for assistance, RN consulted with patient to assess needs related to . Discussed with mother her successes, concerns and any questions she has. Per mother she felt like yesterday the baby was not effectively sucking while at the breast, but is doing much better this morning. We reviewed working with the , supporting breast, protecting her nipples with an optimal deep latch, good positioning, and good hand washing. Encouraged understanding the benefits of skin to skin, responding to feeding cues, frequencies of feeding 8-12 times in 24 hours (approximately 2-3 hours), duration of feedings, milk production, intake/output feeding sheet and signs of adequate intake encouraging swallowing at the breast. Reviewed positioning and alignment, supporting breast, off-centered (asymmetrical latch) and leading with the chin with big, open, wide gape. latched optimally to the [right] breast in [football] position. Education given to the mother of how to visualize the suckling (with good rocking jaw motion) swallows (dropping of the lower jaw) and how to listen for drinking at the breast (the ka sound). The was [able] to maintain latch without discomfort to mother for a consistent 5 minutes and then mother latched baby on her own to her left breast for another 7 mins, then baby took 1.5mls of pumped breast milk via syringe. Nipple care reviewed with optimal latch, good positioning and using clean hands when touching her breast. Resources used to facilitate learning were used from the [visual handouts/ tool/mom and baby guide]. Mother voiced understanding of the education shared, to call for assistance if the infant does not latch or if there is discomfort with . Reported to the Primary RN. 1125 took baby to the nursery for another weight per Dr. Diggs's request, baby had just finished an 11 minute effective feeding at the breast per mother. Reported to Primary RN. 1215 Dr. Diggs in room with RN, she discussed baby's weight loss and bili level, she would like for mother to supplement after with either pumped breast milk and/or formula of at least 15mls, if baby wants more that is OK. Total feeding time (breast/bottle) no more than 30 mins. Reported to Primary RN.
[2024-11-02 10:28] VITALS: BP 108/76; PULSE 85; RESP 18; TEMP 36.4; O2SAT 98
--- NOTE | 2024-11-02 10:50 | PC.NURSE ---
Mother is currently in a No Care Bed, is under phototherapy. Consulted with mother concerning needs and she shared her ability to independently latch and use the breast pump without pain but her breast feedings through the night were anywhere from 1 min to 9 mins each feeding and then supplementing with pumped breast milk (mother pumping 5-8mls per pumping session) and formula. Mother is feeding appropriately for growth of and understands stimulating infant to eat if needed. Infant has had appropriate feedings in the last 24 hours meets the outcomes for weight, output, and blood sugar at this time. Reinforced understanding of milk production, transition of milk, signs of adequate intake, transition of stool, prevention/relief of engorgement, plugged ducts, mastitis, responsive watching for feeding cues, the different methods of stimulating infant to breastfeed 1-3 hours after the start of the last feeding, community resources, and when to call a provider using the resource of the feeding sheet along with the mom and baby guide. Mother voiced understanding of the information shared, is confident to continue effectively her at home, when to call for assistance, denies any additional assistance or education at this time. Reported to the Primary RN.
== END 2024-11-01 11:30 | disposition home or self-care (01) | DRG 807 ==
LOC: ANHLDR 10-30 21:20 → ANHOBPP 10-30 23:55 → ANHOB2 10-31 18:54
PROVIDERS: Admitting Provider Obstetrics & Gynecology Gynecology; PCP Family Medicine; Visit Provider Obstetrics & Gynecology Gynecology
DX: O14.94 Unspecified pre-eclampsia, complicating childbirth (principal); Z37.0 Single live birth; Z3A.36 36 weeks gestation of pregnancy; O60.14X0 Preterm labor third trimester with preterm delivery third trimester, not applicable or unspecified; O70.1 Second degree perineal laceration during delivery; O69.81X0 Labor and delivery complicated by cord around neck, without compression, not applicable or unspecified
CPT/HCPCS: 36415; 80053; 84550; 85014; 85018; 85025; 86593; 86703; 86850; 86900; 86901; 88307; A9270; G0432; J2405; J2590; J2795; J7120